=== PATIENT | female | born 1980 | race American Indian/Alaskan Native ===

== ENCOUNTER 2017-12-04 19:57 | Emergency (ER) | payer OTHER ==
[2017-12-04 21:01] LABS: Bilirubin,Urine NEG (Negative); Blood,Urine NEG (Negative); Color,Urine Yellow (Yellow); Protein,Urine <15 mg/dL mg/dL (Negative); Urobilinogen,Urine < 2.0 mg/dL (<2.0)
[2017-12-04 21:08] LABS: HCG Qualitative,Urine Negative (Negative)
[2017-12-04 21:34] VITALS: BP 143/87
== END 2017-12-04 22:16 | disposition left against medical advice (07) ==
LOC: ED 19:57
DX: Z53.21 Procedure and treatment not carried out due to patient leaving prior to being seen by health care provider (principal)
CPT/HCPCS: 81001; 81025

== ENCOUNTER 2017-12-05 09:14 | Emergency (ER) | payer OTHER ==
[2017-12-05 09:25] VITALS: BP 125/86
[2017-12-05] MEDS ORDERED: NORCO 5/325 PO ONE (09:30)
--- NOTE | 2017-12-05 10:05 | Cat Scan Report ---
CT HEAD WITHOUT CONTRAST: HISTORY: headache. TECHNIQUE: Sequential 2.5mm CT images. COMPARISON: none. FINDINGS: Cerebral Parenchyma: Within normal limits. Cerebellum: Within normal limits. Brainstem: Within normal limits. Ventricles: Normal. Sella: Normal. Extra-axial spaces: Normal. Basal Cisterns: Normal. Intracranial Hemorrhage: None. Midline Shift: None. Calvarium: Normal. Sinuses: Normal. Mastoid Air Cells: Normal. Visualized Orbits: Normal. IMPRESSION: Cranial CT scan within normal limits.
--- NOTE | 2017-12-05 10:12 | Cat Scan Report ---
CT SCAN OF THE CERVICAL SPINE: HISTORY: neck pain. TECHNIQUE: Contiguous 1.25 mm axial images of the cervical spine were obtained. Sagittal and coronal reformatted images. FINDINGS: There is normal alignment of the cervical spine. The body, pedicles and posterior ligaments appear normal. No evidence of fracture or subluxation is seen. The spinal canal appears normal. The prevertebral soft tissues appear normal. Although intraspinal contents can be limited on CT, there appears to be a moderate midline disc protrusion at C3-4 which a biopsy anterior spinal cord. IMPRESSION: No acute osseous injury is appreciated. Midline disc protrusion at C3-4.
--- NOTE | 2017-12-05 10:34 | XRay Report ---
LUMBOSACRAL SPINE, 3 VIEWS: History: Back pain Findings: The vertebral bodies, disk spaces and posterior elements are intact. No compression deformity or malalignment. The SI joints are symmetric and unremarkable. Impression: 1. No evidence for acute injury to the lumbar spine.
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
== END 2017-12-05 11:56 | disposition home or self-care (01) ==
LOC: ED 09:14
DX: M79.1 Myalgia (principal); V49.40XA Driver injured in collision with unspecified motor vehicles in traffic accident, initial encounter; F17.200 Nicotine dependence, unspecified, uncomplicated; Y93.89 Activity, other specified; Y92.89 Other specified places as the place of occurrence of the external cause; Y99.8 Other external cause status
CPT/HCPCS: 70450; 72100; 72125; 99284